=== PATIENT | female | born 1960 ===

== ENCOUNTER 2017-02-23 09:24 | Day surgery (SDC) | payer OTHER ==
[2017-02-23 10:51] VITALS: BMI 28.0
[2017-02-23] MEDS ORDERED: Lactated Ringer's 1,000 ML IV ONE (11:05)
[2017-02-23] MEDS ORDERED: Midazolam 2 MG/2 ML VIAL ONE (11:58)
[2017-02-23] MEDS ORDERED: Lidocaine 2% MPF (5 ml) Inj ONE (11:58)
[2017-02-23] MEDS ORDERED: Propofol 10 mg/ml Inj (20 ML) ONE (12:00)
[2017-02-23 12:37] VITALS: O2SAT 99
[2017-02-23 12:56] VITALS: BP 102/69; PULSE 70; RESP 18; TEMP 97
== END 2017-02-23 13:15 | disposition home or self-care (01) ==
LOC: H.ENDO 09:24
PROVIDERS: ATTEND Internal Medicine Gastroenterology
DX: Z12.11 Encounter for screening for malignant neoplasm of colon (principal); I10 Essential (primary) hypertension; D64.9 Anemia, unspecified; K57.30 Diverticulosis of large intestine without perforation or abscess without bleeding; K29.50 Unspecified chronic gastritis without bleeding
CPT/HCPCS: 45380; 88305; J2250; J2704; J7120